=== PATIENT | female | born 1970 | race Caucasian/White ===

== ENCOUNTER 2016-05-09 19:33 | Emergency (ER) | payer OTHER ==
[2016-05-09 20:11] VITALS: BP 132/87; PULSE 87; RESP 16; TEMP 98.3; O2SAT 97
[2016-05-09] MEDS ORDERED: BICILLIN L-A 1200000 UNIT/2 ML SYRINGE IM ONE (20:57)
--- NOTE | 2016-05-09 21:00 | UCPHY ---
H & P Patient Type: Established Chief Complaint Nursing Narrative: sore throat x 2 days Time Seen by Provider: 05/09/16 20:51 HPI/ROS: CHIEF COMPLAINT: Sore throat HISTORY OF PRESENT ILLNESS: The patient is a 46-year-old healthy female who comes to the Urgent Care complaining of a sore throat for 2 days. No fever, mild lymphadenopathy, no sinus congestion or cough. No fevers. She states that it feels similar strep throat she had a couple of years ago. REVIEW OF SYSTEMS: Constitutional: denies: chills, fever, recent illness, recent injury EENTM: See HPI Respiratory: denies: cough, shortness of breath Cardiac: denies: chest pain, irregular heart rate, lightheadedness, palpitations Gastrointestinal/Abdominal: denies: abdominal pain, diarrhea, nausea, vomiting, blood streaked stools Genitourinary: denies: dysuria, frequency, hematuria, pain Musculoskeletal: denies: joint pain, muscle pain Skin: denies: lesions, rash, jaundice, bruising Neurological: denies: headache, numbness, paresthesia, tingling, dizziness, weakness Hematologic/Lymphatic: denies: blood clots, easy bleeding, easy bruising Immunologic/allergic: denies: HIV/AIDS, transplant EXAM: GENERAL: Well-appearing, well-nourished and in no acute distress. HEAD: Atraumatic, normocephalic. EYES: Pupils equal round and reactive to light, extraocular movements intact, sclera anicteric, conjunctiva are normal. ENT: Slightly enlarged, erythematous tonsils without exudate, effusions behind tympanic membranes, no erythema NECK: Normal range of motion, supple without lymphadenopathy or JVD. LUNGS: Breath sounds clear to auscultation bilaterally and equal. No wheezes rales or rhonchi. HEART: Regular rate and rhythm without murmurs, rubs or gallops. ABDOMEN: Soft, nontender, normoactive bowel sounds. No guarding, no rebound. No masses appreciated. BACK: No CVA tenderness, no spinal tenderness, step-offs or deformities EXTREMITIES: Normal range of motion, no pitting or edema. No clubbing or cyanosis. NEUROLOGICAL: Cranial nerves II through XII grossly intact. Normal speech, normal gait. 5/5 strength, normal movement in all extremities, normal sensation PSYCH: Normal mood, normal affect. SKIN: Warm, dry, normal turgor, no visible rashes or lesions. Source: Patient - Personal History LMP (Females 10-55): Now Current Tetanus Diphtheria and Acellular Pertussis (TDAP): Yes Tetanus Vaccine Date: 2008 - Medical/Surgical History Hx Asthma: No Hx Chronic Respiratory Disease: No Hx Diabetes: No Hx Cardiac Disease: No Hx Renal Disease: No Hx Cirrhosis: No Hx Alcoholism: No Hx HIV/AIDS: No Hx Splenectomy or Spleen Trauma: No Other PMH: LOWER BOWEL OBSTRUCTION 2011 - Family History Significant Family History: No pertinent family hx - Social History Smoking Status: Never smoked Alcohol Use: Sober Drug Use: None Constitutional: Initial Vital Signs Temperature (C) 36.8 C 05/09/16 20:08 Heart Rate 87 05/09/16 20:08 Respiratory Rate 16 05/09/16 20:08 Blood Pressure 132/87 H 05/09/16 20:08 O2 Sat (%) 97 05/09/16 20:08 O2 Delivery Mode Room Air Allergies/Adverse Reactions: shellfish derived Allergy (Severe, Verified 11/24/15 07:22) Home Medications: Medication Instructions Recorded Multivitamins [Multivitamin (OTC)] 10/27/12 Medical Decision Making ED Course/Re-evaluation: Patient's rapid strep is positive. She would prefer IM injection of penicillin. We will treat her with this. We discussed follow-up as well as indications for returning. Differential Diagnosis: Partial list of the Differential diagnosis considered include but were not limited to; strep throat, abscess, mono and although unlikely based on the history and physical exam, I also considered laryngitis, bronchitis, sinusitis, otitis media. I discussed these differential diagnoses and the plan with the patient as well as the usual and expected course. The patient understands that the diagnosis is provisional and that in medicine we are not always correct and that further workup is often warranted. Usual and customary warnings were given. All of the patient's questions were answered. The patient was instructed to return to the emergency department should the symptoms at all worsen or return, otherwise to followup with the physician as we discussed. - Data Points Laboratory Results: 05/09/16 20:09 Group A Strep Screen POSITIVE H (NEGATIVE) Departure - Departure Disposition: Home, Routine, Self-Care Clinical Impression: Strep pharyngitis Condition: Fair Instructions: Strep Throat (ED) Referrals: [place],. [Primary Care Provider] - As per Instructions - PQRS PQRS Measurement: Not applicable
== END 2016-05-09 21:46 | disposition home or self-care (01) ==
LOC: CED 19:33
DX: J02.0 Streptococcal pharyngitis (principal)
CPT/HCPCS: 87880-PO; 96372-PO; 99214-PO; G0463-PO; J0561

== ENCOUNTER 2017-01-25 08:32 | Emergency (ER) | payer OTHER ==
--- NOTE | 2017-01-25 08:37 | EDPHY ---
H & P HPI/ROS: HPI CHIEF COMPLAINT: Right proximal tibia swelling and pain. HISTORY OF PRESENT ILLNESS: This patient very pleasant 46-year-old female, she does not have any significant medical history does not take any daily medications except for control, she presents emergency room as she noticed swelling and pain to the proximal medial aspect of her right tibia. This started 3-4 days ago. No fever. No redness. She does state that he gets more swollen at night and more painful at night. She denies any significant calf tenderness or calf swelling. No history of DVT or PE. No history of trauma. Recently had a bout of strep pharyngitis. She reports no redness, no warmth to this area but does have pain and swelling present. When you evaluate her legs bilaterally medial aspect right proximal tibia there is soft tissue swelling. No warmth. No redness. There is some prominent veins present. More so on the right leg and left leg. No history of DVT. No history of PE. Past Medical History: Denies significant medical history Past Surgical History: Denies significant surgical history Social History: Denies daily use drugs alcohol tobacco products. Family History: Noncontributory ROS REVIEW OF SYSTEMS: A comprehensive 10 point review of systems is otherwise negative aside from elements mentioned in the history of present illness. Exam Constitutional appears well nontoxic triage nursing summary reviewed, vital signs reviewed, awake/alert. Eyes normal conjunctivae and sclera, EOMI, PERRLA. HENT normal inspection, atraumatic, moist mucus membranes, no epistaxis, neck supple/ no meningismus, no raccoon eyes. Respiratory clear to auscultation bilaterally, normal breath sounds, no respiratory distress, no wheezing. Cardiovascular rate normal, regular rhythm, no murmur, no edema, distal pulses normal. Gastrointestinal soft, non-tender, no rebound, no guarding, normal bowel sounds, no distension, no pulsatile mass. Genitourinary no CVA tenderness. Musculoskeletal lower extremity: This leg is neurovascular intact good distal pulse. Good cap refill. Warm extremity. At the proximal medial aspect of the right tibia there is an area of mild swelling, no warmth, no redness, no petechiae, no purpura, no abscess or cellulitis visualize, is mildly tender, I do not palpate a mass. There are prominent veins present on the anterior right tibia. No calf tenderness. No calf fullness. Compartments soft. No popliteal swelling. no midline vertebral tenderness, full range of motion, no calf swelling, no tenderness of extremities, no meningismus, good pulses, neurovascularly intact. Skin pink, warm, & dry, no rash, skin atraumatic. Neurologic awake, alert and oriented x 3, AAOx3, moves all 4 extremities equally, motor intact, sensory intact, CN II-XII intact, normal cerebellar, normal vision, normal speech. Psychiatric normal mood/affect. Heme/Lymph/Immune no lymphadenopathy. Differential Diagnosis: Includes but is not limited to in a particular order, DVT, superficial phlebitis, bony abnormality, osteosarcoma, soft tissue swelling , soft tissue lesion, cellulitis, infection. Medical Decision Making: Plan for this patient x-ray right tib-fib. Will bony abnormality like osteosarcoma. Ultrasound right lower extremity rule out DVT or superficial phlebitis. Re-evaluation: ED x-ray right lower extremity: Soft tissue swelling. No osseous lesion. Otherwise unremarkable x-ray right tib-fib. Ultrasound of the Doppler right lower extremity The results of the study are no DVT. However there is small amount of clot in the saphenous vein. Superficial thrombophlebitis present.. I discussed the results of this study with the radiologist Dr. Mitchell 1125: This patient left the emergency room she could not wait any longer to get her ultrasound results. She had a P comfort kit from [employer]. She did provide me her number which I recalled update her about her ultrasound results. I will recommend she does warm compresses 5 times a day for 20 minutes takes full-dose aspirin. Follows up with her primary care doctor and return to the emergency room she has worsening leg swelling pain questions or concerns. She understands for Source: Patient - Personal History Tetanus Vaccine Date: 2008 - Medical/Surgical History Hx Asthma: No Hx Chronic Respiratory Disease: No Hx Diabetes: No Hx Cardiac Disease: No Hx Renal Disease: No Hx Cirrhosis: No Hx Alcoholism: No Hx HIV/AIDS: No Hx Splenectomy or Spleen Trauma: No Other PMH: LOWER BOWEL OBSTRUCTION 2011 - Social History Smoking Status: Never smoked Constitutional: Initial Vital Signs Temperature (C) 36.8 C 01/25/17 08:46 Heart Rate 104 H 01/25/17 08:46 Respiratory Rate 20 01/25/17 08:46 Blood Pressure 130/96 H 01/25/17 08:46 O2 Sat (%) 98 01/25/17 08:46 O2 Delivery Mode Room Air Allergies/Adverse Reactions: shellfish derived Allergy (Severe, Verified 11/24/15 07:22) clindamycin Allergy (Verified 01/25/17 08:46) prednisone Allergy (Verified 01/25/17 08:46) Home Medications: Medication Instructions Recorded Multivitamins [Multivitamin (OTC)] 10/27/12 Control 01/25/17 Medical Decision Making - Diagnostics Imaging Results: Imaging Impressions Tibia/Fibula X-Ray 01/25/17 08:43 Impression: Pretibial soft tissue swelling. No evidence of osteomyelitis or foreign body. Departure - Departure Disposition: Home, Routine, Self-Care Clinical Impression: Superficial thrombophlebitis Extremity pain Qualifiers: Extremity pain location: lower extremity Laterality: right Qualified Code(s): M79.604 - Pain in right leg Leg pain Qualifiers: Laterality: right Qualified Code(s): M79.604 - Pain in right leg Condition: Good Instructions: Leg Pain (ED), Superficial Thrombophlebitis (ED) Additional Instructions: 1. Keep her leg elevated as much as possible. 2. Warm compresses and compression dressing. 3. Return emergency room if he gets worsening pain fever worsening swelling or questions or concerns. 4. Warm compresses 5 times a day for 20 minutes. 5. Full-dose aspirin. 6. Follow up with her primary care doctor Referrals: NONE *PRIMARY CARE P,. [Unknown] - As per Instructions
[2017-01-25 08:49] VITALS: RESP 20; TEMP 98.2
[2017-01-25 11:39] VITALS: BP 134/84; PULSE 91; O2SAT 95
== END 2017-01-25 11:38 | disposition home or self-care (01) ==
LOC: CED 08:32
DX: I80.01 Phlebitis and thrombophlebitis of superficial vessels of right lower extremity (principal)
CPT/HCPCS: 73590-PO; 93971-PO

== ENCOUNTER 2017-02-10 10:11 | Emergency (ER) | payer OTHER ==
[2017-02-10 10:19] VITALS: BP 131/82; PULSE 90; RESP 20; TEMP 98.1; O2SAT 99
--- NOTE | 2017-02-10 10:47 | EDPHY ---
H & P Time Seen by Provider: 02/10/17 10:16 HPI/ROS: HPI Evaluate for DVT in right leg. 46-year-old female by private vehicle with her son. This patient was seen in our emergency department by Dr. Suresh on January 25 with complaint of some pain and inflammation involving the medial aspect of her right proximal calf. She was diagnosed with a superficial thrombophlebitis. She was placed on aspirin regiment. Her right lower extremity ultrasound was negative except for this. She returns to the emergency department today complaining of some mild discomfort in her upper calf. She is concerned that she has now developed a DVT. She states that the inflammation and discomfort she had initially on her emergency department visit January 25 has gone away. She stop taking aspirin several days ago. She was taking 324 mg daily. She is asking for repeat ultrasound. ROS: Constitutional: No fever, no chills. No weakness. Musculoskeletal: No back pain. As above. Skin: No rashes. Neurological: No focal weakness or altered sensation. Past medical history: Bowel obstruction in 2011. As above. Social history: Nonsmoker. Here with her son. No alcohol. Physical Exam: General Appearance: Alert, no distress. This patient is responding to questions appropriately and in full sentences. This patient appears well- hydrated and well-nourished. Eyes: Pupils equal and round no pallor or injection. No lid edema, erythema or injection. Right lower extremity exam: The right lower extremity is symmetric with the left lower extremity. Examination of the medial proximal aspect of the right calf is unremarkable. No soft tissue inflammation or tenderness on palpation to suggest superficial thrombophlebitis. She has no significant calf tenderness on palpation. No palpable cords. Negative Rasta sign. The right lower extremity is neurovascularly intact. Neurological: Motor sensory function is grossly intact. Cranial nerves are normal. Gait is normal. Skin: Warm and dry, no rashes. Extremities are symmetrical. All joints range without pain or impingement. Psychiatric: No agitation. No depression. Database: EKG: Imaging: Right lower extremity Doppler ultrasound: Negative for DVT. Superficial thrombus, greater saphenous vein from the knee to the proximal calf. Unchanged from prior study. Results were discussed with staff radiologist Dr. Saad Mitchell. Procedures: Emergency department course: After my evaluation, the patient was sent for a right lower extremity ultrasound. 12:20 p.m., discussed results of ultrasound with patient. Recommended continued aspirin treatment. Follow up for repeat ultrasound in 1 week with her primary care physician. Patient feels comfortable with this plan. All of her questions were answered. Return to emergency department precautions reviewed. She was discharged in good condition. Differential Diagnosis: The differential diagnosis on this patient includes but is not limited to calf muscle strain. Superficial thrombophlebitis, DVT, muscle tear unlikely. This represents a partial list of diagnoses considered. These considerations are based on history, physical exam, past history, reassessment and diagnostic testing. Smoking Status: Never smoked Constitutional: Initial Vital Signs Temperature (C) 36.7 C 02/10/17 10:14 Heart Rate 90 02/10/17 10:14 Respiratory Rate 20 02/10/17 10:14 Blood Pressure 131/82 H 02/10/17 10:14 O2 Sat (%) 99 02/10/17 10:14 O2 Delivery Mode Room Air Allergies/Adverse Reactions: shellfish derived Allergy (Severe, Verified 11/24/15 07:22) clindamycin Allergy (Verified 01/25/17 08:46) prednisone Allergy (Verified 01/25/17 08:46) Home Medications: Medication Instructions Recorded Multivitamins [Multivitamin (OTC)] 10/27/12 Control 01/25/17 Medical Decision Making - Diagnostics Imaging Results: Imaging Impressions Extremity Venous Study 02/10/17 10:17 Impression: 1. No deep venous thrombosis in the right lower extremity. 2. Stable superficial thrombus right greater saphenous vein from the knee to the proximal calf. Departure - Departure Disposition: Home, Routine, Self-Care Clinical Impression: Right calf pain, Superficial thrombosis of right lower extremity Condition: Good Instructions: Superficial Thrombophlebitis (ED) Additional Instructions: Read and follow provided instructions. Follow-up with your primary care physician in 1 week for re-evaluation and repeat ultrasound which can be ordered by her primary care physician. Continue aspirin therapy at 324 mg daily for 5 days followed by 81 mg daily for 5 days. Return to the emergency department for worsening pain, swelling, shortness of breath, redness to the area, fever or other serious concerns. Referrals: Jacey Caballero MD [Medical Doctor] - As per Instructions [facility],. [Clinic] - As per Instructions
== END 2017-02-10 12:33 | disposition home or self-care (01) ==
LOC: CED 10:11
DX: I82.811 Embolism and thrombosis of superficial veins of right lower extremity (principal)
CPT/HCPCS: 93971-PO

== ENCOUNTER 2017-04-05 08:25 | Emergency (ER) | payer OTHER ==
[2017-04-05 08:38] VITALS: RESP 16; O2SAT 98
--- NOTE | 2017-04-05 08:42 | EDPHY ---
H & P Stated Complaint: follow up on blood clot right medial calf Time Seen by Provider: 04/05/17 08:32 HPI/ROS: Chief Complaint: Follow-up right leg blood clot HPI: 47-year-old woman who was diagnosed with a superficial thrombus in her light leg in January. She took a 2 week course of aspirin. She attempted to follow up with primary care physician for follow-up ultrasound but was told that it would require 3 visits to their office. She states that she is in the process of getting very busy does not have time for this. Is presenting here for evaluation because she is flying out of town tomorrow. She denies any worsening leg pain or swelling. No fevers or chills. No chest pain or shortness of breath. The area where the superficial clot was identified has improved. She was on oral contraceptives when she was diagnosed. She has since stopped and had an IUD placed. She does not smoke. ROS: 10 point Review of Systems is negative except as noted in the HPI. PMH: Negative Social History: No smoking, occasional alcohol, no recreational drug use Family History: non-contributory Physical Exam: Gen: Awake, Alert, No Distress HEENT: Nose: no rhinorrhea Eyes: PERRLA, EOMI Mouth: Moist mucosa Neck: Supple, no JVD Chest: nontender, lungs clear to auscultation Heart: S1, S2 normal, no murmur Abd: Soft, non-tender, no guarding Back: no CVA tenderness, no midline tenderness Ext: no edema, non-tender Skin: no rash Neuro: CN II-XII intact, Sensation grossly intact, Strength 5/5 in bilateral upper and lower extremities - Personal History LMP (Females 10-55): IUD In Place Tetanus Vaccine Date: 2008 - Medical/Surgical History Hx Asthma: No Hx Chronic Respiratory Disease: No Hx Diabetes: No Hx Cardiac Disease: No Hx Renal Disease: No Hx Cirrhosis: No Hx Alcoholism: No Hx HIV/AIDS: No Hx Splenectomy or Spleen Trauma: No Other PMH: LOWER BOWEL OBSTRUCTION 2011, superficial dvt right calf february 2107 - Social History Smoking Status: Never smoked Constitutional: Initial Vital Signs Heart Rate 90 04/05/17 08:32 Respiratory Rate 16 04/05/17 08:32 Blood Pressure 108/78 04/05/17 08:32 O2 Sat (%) 98 04/05/17 08:32 O2 Delivery Mode Room Air Allergies/Adverse Reactions: shellfish derived Allergy (Severe, Verified 11/24/15 07:22) clindamycin Allergy (Verified 01/25/17 08:46) prednisone Allergy (Verified 01/25/17 08:46) Home Medications: Medication Instructions Recorded Multivitamins [Multivitamin (OTC)] 10/27/12 Medical Decision Making ED Course/Re-evaluation: Ultrasound shows no DVT and has resolution of the superficial clot. Negative study. Patient will be discharged with follow-up as needed. Departure - Departure Disposition: Home, Routine, Self-Care Clinical Impression: Normal physical exam Condition: Good Instructions: Normal Exam (ED) Additional Instructions: Follow up with a primary care physician for any concerns. Referrals: NONE *PRIMARY CARE P,. [Primary Care Provider] - As per Instructions
[2017-04-05 10:04] VITALS: BP 110/70; PULSE 88; TEMP 98.6
== END 2017-04-05 09:58 | disposition home or self-care (01) ==
LOC: CED 08:25
DX: Z00.00 Encounter for general adult medical examination without abnormal findings (principal)
CPT/HCPCS: 93971-PO

== ENCOUNTER → 2017-04-06 | Outpatient (CLI) | payer OTHER | LOC: BRMIMAGING 08:19 | PROVIDERS: ATTEND Obstetrics & Gynecology | DX: Z12.31 Encounter for screening mammogram for malignant neoplasm of breast (principal); Z80.3 Family history of malignant neoplasm of breast | CPT/HCPCS: G0202 ==

== ENCOUNTER → 2018-07-18 | Outpatient (CLI) | payer MEDICAID | LOC: FIMAGING 12:59 | PROVIDERS: ATTEND Obstetrics & Gynecology | DX: Z12.31 Encounter for screening mammogram for malignant neoplasm of breast (principal); Z80.3 Family history of malignant neoplasm of breast ==